=== PATIENT | male | born 1940 | race Caucasian/White ===

== ENCOUNTER 2018-10-11 12:41 | Emergency (ER) | payer OTHER ==
[~2018-10-11] VITALS: Ht 165.1 cm; Wt 69.3 kg
[2018-10-11 12:50] VITALS: BP 149/84
[2018-10-11 13:26] LABS: BASOPHILS # (AUTO) 0.05 x10^3/uL (0-0.1); BASOPHILS % (AUTO) 1 % (0-1); EOSINOPHILS # (AUTO) 0.06 x10^3/uL (0-0.4); EOSINOPHILS % (AUTO) 1 % (1-7); LYMPHOCYTES % (AUTO) 12 % (22-44); MD NO; MEAN CORPUSCULAR HEMOGLOBIN 31.9 pg (27.5-34.5); MEAN CORPUSCULAR HGB CONC 33.2 g/dL (33.2-36.2); MEAN CORPUSCULAR VOLUME 96.3 fL (81-97); MONOCYTES # (AUTO) 0.66 x10^3/uL (0.2-0.8); MONOCYTES % (AUTO) 7 % (2-9); NEUTROPHILS # (AUTO) 7.88 x10^3/uL (1.8-6.8); NEUTROPHILS % (AUTO) 80 % (42-75); PLATELET COUNT 276 x10^3/uL (130-400); RED BLOOD COUNT 4.51 x10^6/uL (4.38-5.82); RED CELL DISTRIBUTION WIDTH 15.5 % (9.4-14.8)
[2018-10-11 13:39] LABS: ALANINE AMINOTRANSFERASE 27 U/L (12-78); ALBUMIN 4.2 g/dL (3.4-5.0); ANION GAP 8 mmol/L (5-15); CALCIUM 9.3 mg/dL (8.5-10.1); CHLORIDE 104 mmol/L (98-107); CREATININE 2.47 mg/dL (0.7-1.3)
[2018-10-11 13:41] LABS: ALKALINE PHOSPHATASE 95 U/L (45-117); BILIRUBIN,TOTAL 0.8 mg/dL (0.2-1.0); TOTAL PROTEIN 8.5 g/dL (6.4-8.2)
[2018-10-11 14:05] LABS: CULTURE INDICATED? YES
[2018-10-11] MEDS ORDERED: B12/1TAB PO (14:07)
[2018-10-11] MEDS ORDERED: ALLO300T PO (14:07)
[2018-10-11] MEDS ORDERED: LISI-170 PO (14:07)
[2018-10-11] MEDS ORDERED: ATOR20TA37 PO (14:07)
[2018-10-11 14:24] LABS: MICROSCOPIC INDICATED
== END 2018-10-11 15:27 | disposition home or self-care (01) ==
LOC: ED 13:43
DX: R10.31 Right lower quadrant pain (principal); R10.32 Left lower quadrant pain; I10 Essential (primary) hypertension
CPT/HCPCS: 36415; 74176; 80053; 81001; 83690; 85025; 87086; 99284

== ENCOUNTER 2018-11-16 09:16 | Outpatient (CLI) | payer OTHER, MEDICARE ==
[~2018-11-16 09:16] MED LIST: ALLO300T PO; ATOR20TA37 PO; B12/1TAB PO; LISI-170 PO
[2018-11-16] MEDS ORDERED: FLAX10004 PO (09:52)
[2018-11-16] MEDS ORDERED: CYAN1TAB29 PO (09:52)
[2018-11-16 10:40] LABS: MICROSCOPIC NOT IND
== END 2018-11-16 23:59 | disposition home or self-care (01) ==
LOC: STAR 09:16
PROVIDERS: ATTEND Urology
DX: Z01.818 Encounter for other preprocedural examination (principal); C64.9 Malignant neoplasm of unspecified kidney, except renal pelvis
CPT/HCPCS: 81003; 87086; 93005

== ENCOUNTER 2018-11-22 07:58 | Inpatient (IN) | payer MEDICARE, OTHER ==
[~2018-11-22] VITALS: Ht 165.1 cm; Wt 68.9 kg
[~2018-11-22 07:58] MED LIST changes: +CYAN1TAB29 PO; +FLAX10004 PO; +LIDOCAINE-MPF 2% ,5ML ONE
[2018-11-22] MEDS ORDERED: LACTATED RINGERS 1,000 ML IV SCH (10:54)
[2018-11-22 10:57] VITALS: BP 113/67
[2018-11-22] MEDS ORDERED: BUPIVACAINE/PF 0.5% ONE (11:45)
[2018-11-22] MEDS ORDERED: DEXAMETHASONE 4 MG/ML, 1ML ONE (11:52)
[2018-11-22] MEDS ORDERED: PROPOFOL 10 MG/ML, 20ML ONE (11:52)
[2018-11-22] MEDS ORDERED: FENTANYL PF 250 MCG/5ML ONE ×2 (11:52→15:29)
[2018-11-22] MEDS ORDERED: MIDAZOLAM 1 MG/ML, 2ML ONE (11:52)
[2018-11-22] MEDS ORDERED: GLYCOPYRROLATE 0.2MG/1ML, 5ML ONE (11:52)
[2018-11-22] MEDS ORDERED: ROCURONIUM 10MG/ML,5ML ONE (11:52)
[2018-11-22] MEDS ORDERED: CEFAZOLIN 1,000 MG ONE (11:53)
[2018-11-22] MEDS ORDERED: FAMOTIDINE 20 MG TABLET PO ONE (12:30)
[2018-11-22] MEDS ORDERED: ALBUTEROL SULFATE 2.5 MG/3 ML NPPB PRN (12:30)
[2018-11-22] MEDS ORDERED: ACETAMINOPHEN 325 MG TABLET PO PRN (12:30)
[2018-11-22] MEDS ORDERED: MIDAZOLAM 1 MG/ML, 2ML IV PRN (12:30)
[2018-11-22] MEDS ORDERED: OxyconTIN ER 10 MG TAB.ER PO ONE (12:30)
[2018-11-22] MEDS ORDERED: DEXAMETHASONE 4 MG/ML, 1ML IV PRN (12:30)
[2018-11-22] MEDS ORDERED: EPHEDRINE 50 MG/ML, 1ML IVPush PRN (12:30)
[2018-11-22] MEDS ORDERED: HYDROmorphone 2 MG/ML, 1ML IVPush PRN (12:30)
[2018-11-22] MEDS ORDERED: MEPERIDINE/PF 25MG/0.5ML IVPush PRN (12:30)
[2018-11-22] MEDS ORDERED: HYDROcodone/APAP 7.5-325MG/15ML UDC PO PRN (12:30)
[2018-11-22] MEDS ORDERED: SCOPOLAMINE PATCH, 1.5MG PATCH.TD72 TD ONE (12:30)
[2018-11-22] MEDS ORDERED: FENTANYL PF 100 MCG/2ML IV PRN (12:30)
[2018-11-22] MEDS ORDERED: OXYcodone 5 MG/5 ML ORAL.SOL UDC PO PRN (12:30)
[2018-11-22] MEDS ORDERED: ONDANSETRON ODT 8 MG PO PRN (12:30)
[2018-11-22] MEDS ORDERED: LABETALOL 5MG/ML, 20ML IV PRN (12:30)
[2018-11-22] MEDS ORDERED: hydrALAzine 20 MG/ML, 1ML IV PRN (12:30)
[2018-11-22] MEDS ORDERED: MORPHINE SULFATE 4 MG/ML, 1ML IVPush PRN (12:30)
[2018-11-22] MEDS ORDERED: GABAPENTIN 300 MG CAPSULE PO ONE (12:30)
[2018-11-22] MEDS ORDERED: EPHEDRINE 50 MG/ML, 1ML ONE (15:29)
[2018-11-22] MEDS ORDERED: PHENYLEPHRINE 10 MG/ML ONE (15:29)
[2018-11-22] MEDS ORDERED: THROMBIN 20,000 UNIT VIAL TP ONE (16:01)
[2018-11-22] MEDS ORDERED: hydrALAzine 20 MG/ML, 1ML ONE (17:43)
[2018-11-22] MEDS ORDERED: OPIUM/BELLADONNA SUPP.RECT 16.2-30 MG PR PRN (18:30)
[2018-11-22] MEDS: morphine SULFATE 10 MG/ML, 1ML IV PRN (19:57)
[2018-11-22 20:11] VITALS: BP 105/73
[2018-11-22] MEDS: D5%-LACTATED RINGERS 1,000 ML IV SCH (20:18)
[2018-11-22] MEDS: ATORVASTATIN 20 MG TABLET PO SCH (21:00)
[2018-11-22 21:53] VITALS: BP 117/70
[2018-11-22 23:10] VITALS: BP 98/65
[2018-11-23] VITALS (10 sets, daily range): BP systolic 78–127; BP diastolic 52–72
[2018-11-23] MEDS: morphine SULFATE 10 MG/ML, 1ML IV PRN ×3 (04:04→18:05)
[2018-11-23 05:23] LABS: CHLORIDE 107 mmol/L (98-107)
[2018-11-23 05:28] LABS: ANION GAP 7 mmol/L (5-15); CALCIUM 8.4 mg/dL (8.5-10.1); CREATININE 2.56 mg/dL (0.7-1.3)
[2018-11-23] MEDS: D5%-LACTATED RINGERS 1,000 ML IV SCH (06:02)
[2018-11-23] MEDS: ALLOPURINOL 300 MG TABLET PO SCH (08:59)
[2018-11-23] MEDS ORDERED: LISINOPRIL 20 MG TABLET PO SCH (09:00)
[2018-11-23] MEDS: ONDANSETRON 2MG/ML, 2ML IV PRN (09:19)
[2018-11-23] MEDS ORDERED: SODIUM POLYSTYRENE SULFONATE ORAL SUSP PO ONE (15:07)
[2018-11-23] MEDS ORDERED: INSULIN REGULAR 100 UNITS/ML, 3ML VIAL IVPush STA (15:07)
[2018-11-23] MEDS ORDERED: DEXTROSE 50%, 50ML VIAL IVPush ONE (15:30)
[2018-11-23 15:36] LABS: BASOPHILS % (AUTO) 0 % (0-1); EOSINOPHILS % (AUTO) 0 % (1-7); LYMPHOCYTES # (AUTO) 0.69 x10^3/uL (1-3.4); LYMPHOCYTES % (AUTO) 6 % (22-44); MD NO; MEAN CORPUSCULAR HEMOGLOBIN 31.2 pg (27.5-34.5); MEAN CORPUSCULAR HGB CONC 32.5 g/dL (33.2-36.2); MEAN CORPUSCULAR VOLUME 96.2 fL (81-97); MEAN PLATELET VOLUME 7.3 fL (7.4-10.4); MONOCYTES # (AUTO) 0.57 x10^3/uL (0.2-0.8); MONOCYTES % (AUTO) 5 % (2-9); NEUTROPHILS # (AUTO) 10.02 x10^3/uL (1.8-6.8); NEUTROPHILS % (AUTO) 89 % (42-75); PLATELET COUNT 236 x10^3/uL (130-400); RED BLOOD COUNT 3.05 x10^6/uL (4.38-5.82); RED CELL DISTRIBUTION WIDTH 16.1 % (9.4-14.8)
[2018-11-23 15:53] LABS: TROPONIN I 0.247 ng/mL (0.000-0.045)
[2018-11-23] MEDS ORDERED: FUROSEMIDE 20 MG/2 ML IV ONE (17:00)
[2018-11-23] MEDS: SODIUM BICARB 8.4%,50ML SYR. 75 MEQ in SODIUM CHLORIDE 0.45% 1,000 ML IV SCH ×2 (17:54→23:43)
[2018-11-23 18:23] LABS: TROPONIN I 0.207 ng/mL (0.000-0.045)
[2018-11-23] MEDS ORDERED: D5%-LACTATED RINGERS 1,000 ML IV SCH (18:30)
[2018-11-23 18:49] LABS: FREE T4 (FREE THYROXINE) 1.27 ng/dL (0.76-1.46)
[2018-11-23] MEDS: LIDODERM 5% PATCH TD SCH (20:41)
[2018-11-23] MEDS: ATORVASTATIN 20 MG TABLET PO SCH (20:41)
[2018-11-23 22:25] LABS: ANION GAP 5 mmol/L (5-15); CALCIUM 8.5 mg/dL (8.5-10.1); CHLORIDE 104 mmol/L (98-107); CREATININE 2.77 mg/dL (0.7-1.3)
[2018-11-23 22:29] LABS: TROPONIN I 0.188 ng/mL (0.000-0.045)
[2018-11-24 00:31] VITALS: BP 117/67
[2018-11-24 04:15] VITALS: BP 105/66
[2018-11-24] MEDS: SODIUM BICARB 8.4%,50ML SYR. 75 MEQ in SODIUM CHLORIDE 0.45% 1,000 ML IV SCH (04:53)
[2018-11-24 06:07] LABS: ANION GAP 4 mmol/L (5-15); CHLORIDE 103 mmol/L (98-107)
[2018-11-24 06:16] LABS: ALANINE AMINOTRANSFERASE 12 U/L (12-78); ALBUMIN 2.5 g/dL (3.4-5.0); ALKALINE PHOSPHATASE 81 U/L (45-117); BILIRUBIN,TOTAL 0.7 mg/dL (0.2-1.0); CALCIUM 8.3 mg/dL (8.5-10.1); CHOL/HDL RATIO 2.6; CHOLESTEROL, TOTAL 100 mg/dL (140-239); CREATININE 2.54 mg/dL (0.7-1.3); HDL CHOL % 39 % (26-37); HDL CHOLESTEROL (DIRECT) 39 mg/dL (40-60); LDL CHOLESTEROL,CALCULATED 44 mg/dL (54-169); LDL/HDL RATIO 1.1 (0.5-3.0); TOTAL PROTEIN 5.7 g/dL (6.4-8.2); TRIGLYCERIDES 87 mg/dL (50-200); VLDL CHOLESTEROL 17 mg/dL (0-25)
[2018-11-24 06:30] LABS: BASOPHILS # (AUTO) 0.01 x10^3/uL (0-0.1); BASOPHILS % (AUTO) 0 % (0-1); EOSINOPHILS # (AUTO) 0.02 x10^3/uL (0-0.4); EOSINOPHILS % (AUTO) 0 % (1-7); LYMPHOCYTES # (AUTO) 1.08 x10^3/uL (1-3.4); LYMPHOCYTES % (AUTO) 10 % (22-44); MD NO; MEAN CORPUSCULAR HEMOGLOBIN 32.2 pg (27.5-34.5); MEAN CORPUSCULAR HGB CONC 33.7 g/dL (33.2-36.2); MEAN CORPUSCULAR VOLUME 95.4 fL (81-97); MEAN PLATELET VOLUME 8.3 fL (7.4-10.4); MONOCYTES # (AUTO) 0.64 x10^3/uL (0.2-0.8); MONOCYTES % (AUTO) 6 % (2-9); NEUTROPHILS # (AUTO) 8.92 x10^3/uL (1.8-6.8); NEUTROPHILS % (AUTO) 84 % (42-75); PLATELET COUNT 184 x10^3/uL (130-400); RED BLOOD COUNT 3.09 x10^6/uL (4.38-5.82); RED CELL DISTRIBUTION WIDTH 16.4 % (9.4-14.8)
[2018-11-24 07:21] VITALS: BP 115/67
[2018-11-24] MEDS: ALLOPURINOL 300 MG TABLET PO SCH (07:44)
[2018-11-24] MEDS ORDERED: FUROSEMIDE 40 MG/4 ML IV ONE (08:00)
[2018-11-24] MEDS: LACTATED RINGERS 1,000 ML IV SCH ×3 (08:04→23:05)
[2018-11-24] MEDS: ONDANSETRON 2MG/ML, 2ML IV PRN (09:45)
[2018-11-24] MEDS: HYDROcodone/APAP 5/325 TABLET PO PRN (10:24)
[2018-11-24] MEDS: FAMOTIDINE 20 MG TABLET PO SCH (10:24)
[2018-11-24] MEDS ORDERED: MAALOX/HYOSCYAMINE/LIDOCAINE 45 ML BTL PO PRN (10:30)
[2018-11-24] MEDS ORDERED: PHENOL THROAT SPRAY BOTTLE MM PRN (10:30)
[2018-11-24 12:53] VITALS: BP 96/56
[2018-11-24 19:35] VITALS: BP 96/60
[2018-11-24] MEDS: LIDODERM 5% PATCH TD SCH (20:41)
[2018-11-24] MEDS: ATORVASTATIN 20 MG TABLET PO SCH (20:42)
[2018-11-25 01:50] VITALS: BP 100/60
[2018-11-25] MEDS: HYDROcodone/APAP 5/325 TABLET PO PRN ×3 (02:02→20:43)
[2018-11-25 04:38] LABS: ANION GAP 3 mmol/L (5-15); CALCIUM 8.7 mg/dL (8.5-10.1); CHLORIDE 102 mmol/L (98-107); CREATININE 2.58 mg/dL (0.7-1.3)
[2018-11-25 04:43] LABS: % IRON SATURATION 14 % (20-55); IRON LEVEL 26 mcg/dL (65-175); TOTAL IRON BINDING CAPACITY 187 mcg/dL (250-450)
[2018-11-25 04:49] LABS: TROPONIN I 0.071 ng/mL (0.000-0.045)
[2018-11-25] MEDS: LACTATED RINGERS 1,000 ML IV SCH (05:55)
[2018-11-25 07:50] VITALS: BP 118/72
[2018-11-25] MEDS ORDERED: REGADENOSON 0.4 MG/5 ML SYRINGE ONE (08:45)
[2018-11-25] MEDS ORDERED: ALBUMIN HUMAN 25% 100 ML IV ONE (09:30)
[2018-11-25] MEDS ORDERED: SODIUM CHLORIDE 0.45% 1,000 ML IV SCH (09:30)
[2018-11-25] MEDS: FAMOTIDINE 20 MG TABLET PO SCH (09:38)
[2018-11-25] MEDS: ALLOPURINOL 300 MG TABLET PO SCH (09:38)
[2018-11-25] MEDS: SODIUM CHLORIDE 0.9% 1,000 ML IV SCH (11:09)
[2018-11-25] MEDS ORDERED: METOPROLOL TARTRATE 25 MG TABLET PO SCH (11:30)
[2018-11-25] MEDS: METOPROLOL TARTRATE 25 MG TABLET PO SCH ×2 (11:36→18:15)
[2018-11-25 13:31] VITALS: BP 116/67
[2018-11-25] MEDS: ASPIRIN 81 MG TABLET EC PO SCH (15:15)
[2018-11-25 18:42] VITALS: BP 102/61
[2018-11-25] MEDS: LIDODERM 5% PATCH TD SCH (20:39)
[2018-11-25] MEDS: ATORVASTATIN 40 MG TABLET PO SCH (20:43)
[2018-11-26] MEDS: SODIUM CHLORIDE 0.9% 1,000 ML IV SCH ×3 (00:08→21:33)
[2018-11-26 00:20] VITALS: BP 127/70
[2018-11-26 05:48] VITALS: BP 120/74
[2018-11-26] MEDS: METOPROLOL TARTRATE 25 MG TABLET PO SCH ×2 (05:49→18:46)
[2018-11-26] MEDS: ASPIRIN 81 MG TABLET EC PO SCH (05:49)
[2018-11-26] MEDS: HYDROcodone/APAP 5/325 TABLET PO PRN ×2 (05:53→12:31)
[2018-11-26 06:54] VITALS: BP 102/62
[2018-11-26] MEDS: FAMOTIDINE 20 MG TABLET PO SCH (08:37)
[2018-11-26] MEDS: ALLOPURINOL 300 MG TABLET PO SCH (08:37)
[2018-11-26] MEDS ORDERED: POLYETHYLENE GLYCOL 17 GM PACKET PO PRN (11:00)
[2018-11-26 11:20] LABS: BASOPHILS # (AUTO) 0.01 x10^3/uL (0-0.1); BASOPHILS % (AUTO) 0 % (0-1); EOSINOPHILS # (AUTO) 0.24 x10^3/uL (0-0.4); EOSINOPHILS % (AUTO) 3 % (1-7); LYMPHOCYTES # (AUTO) 0.75 x10^3/uL (1-3.4); LYMPHOCYTES % (AUTO) 9 % (22-44); MD NO; MEAN CORPUSCULAR HEMOGLOBIN 33.1 pg (27.5-34.5); MEAN CORPUSCULAR HGB CONC 34.2 g/dL (33.2-36.2); MEAN CORPUSCULAR VOLUME 96.7 fL (81-97); MEAN PLATELET VOLUME 7.4 fL (7.4-10.4); MONOCYTES # (AUTO) 0.36 x10^3/uL (0.2-0.8); MONOCYTES % (AUTO) 4 % (2-9); NEUTROPHILS # (AUTO) 6.86 x10^3/uL (1.8-6.8); NEUTROPHILS % (AUTO) 83 % (42-75); PLATELET COUNT 213 x10^3/uL (130-400); RED BLOOD COUNT 3.01 x10^6/uL (4.38-5.82); RED CELL DISTRIBUTION WIDTH 15.8 % (9.4-14.8)
[2018-11-26 11:27] LABS: ALBUMIN 2.9 g/dL (3.4-5.0); ANION GAP 3 mmol/L (5-15); CALCIUM 8.7 mg/dL (8.5-10.1); CHLORIDE 105 mmol/L (98-107); CREATININE 2.16 mg/dL (0.7-1.3)
[2018-11-26] MEDS: DOCUSATE 100 MG CAPSULE PO SCH ×2 (12:20→20:26)
[2018-11-26 13:27] VITALS: BP 120/74
[2018-11-26] MEDS: ACETAMINOPHEN 325 MG TABLET PO PRN (18:46)
[2018-11-26 18:50] VITALS: BP 123/62
[2018-11-26] MEDS: ATORVASTATIN 40 MG TABLET PO SCH (20:26)
[2018-11-26] MEDS: LIDODERM 5% PATCH TD SCH (20:31)
[2018-11-27 02:53] VITALS: BP 118/62
[2018-11-27] MEDS: HYDROcodone/APAP 5/325 TABLET PO PRN ×2 (03:05→20:25)
[2018-11-27 05:35] LABS: CHLORIDE 105 mmol/L (98-107)
[2018-11-27 05:39] LABS: ALBUMIN 2.5 g/dL (3.4-5.0); ANION GAP 4 mmol/L (5-15); CALCIUM 8.3 mg/dL (8.5-10.1); CREATININE 1.84 mg/dL (0.7-1.3)
[2018-11-27 06:57] VITALS: BP 123/66
[2018-11-27] MEDS: ASPIRIN 81 MG TABLET EC PO SCH (07:17)
[2018-11-27] MEDS: METOPROLOL TARTRATE 25 MG TABLET PO SCH ×2 (07:18→18:12)
[2018-11-27] MEDS: SODIUM CHLORIDE 0.9% 1,000 ML IV SCH (07:18)
[2018-11-27] MEDS ORDERED: BISACODYL 10 MG SUPP PR PRN (07:30)
[2018-11-27] MEDS: FAMOTIDINE 20 MG TABLET PO SCH (10:42)
[2018-11-27] MEDS: DOCUSATE 100 MG CAPSULE PO SCH ×2 (10:42→20:03)
[2018-11-27] MEDS: ALLOPURINOL 300 MG TABLET PO SCH (10:42)
[2018-11-27] MEDS ORDERED: LACTULOSE 10 GM/15 ML UDC PO PRN (11:00)
[2018-11-27 12:23] VITALS: BP 119/65
[2018-11-27 19:47] VITALS: BP 137/71
[2018-11-27] MEDS: ATORVASTATIN 40 MG TABLET PO SCH (20:24)
[2018-11-27] MEDS: LIDODERM 5% PATCH TD SCH (20:26)
[2018-11-28 00:25] VITALS: BP 145/74
[2018-11-28] MEDS: ASPIRIN 81 MG TABLET EC PO SCH (06:14)
[2018-11-28] MEDS: METOPROLOL TARTRATE 25 MG TABLET PO SCH ×2 (06:14→17:26)
[2018-11-28 06:15] VITALS: BP 126/68
[2018-11-28] MEDS: ACETAMINOPHEN 325 MG TABLET PO PRN ×2 (06:17→17:27)
[2018-11-28 06:49] VITALS: BP 127/72
[2018-11-28] MEDS: FAMOTIDINE 20 MG TABLET PO SCH (08:29)
[2018-11-28] MEDS: DOCUSATE 100 MG CAPSULE PO SCH ×2 (08:29→20:39)
[2018-11-28] MEDS: ALLOPURINOL 300 MG TABLET PO SCH (08:29)
[2018-11-28 13:00] VITALS: BP 123/71
[2018-11-28 18:50] VITALS: BP 121/70
[2018-11-28] MEDS: LIDODERM 5% PATCH TD SCH (20:39)
[2018-11-28] MEDS: ATORVASTATIN 40 MG TABLET PO SCH (20:39)
[2018-11-29 02:29] VITALS: BP 130/72
[2018-11-29] MEDS: METOPROLOL TARTRATE 25 MG TABLET PO SCH (05:40)
[2018-11-29] MEDS: ASPIRIN 81 MG TABLET EC PO SCH (05:40)
[2018-11-29 06:19] LABS: BASOPHILS # (AUTO) 0.03 x10^3/uL (0-0.1); BASOPHILS % (AUTO) 1 % (0-1); EOSINOPHILS # (AUTO) 0.28 x10^3/uL (0-0.4); EOSINOPHILS % (AUTO) 4 % (1-7); LYMPHOCYTES % (AUTO) 17 % (22-44); MD NO; MEAN CORPUSCULAR HEMOGLOBIN 32.7 pg (27.5-34.5); MEAN CORPUSCULAR VOLUME 96.2 fL (81-97); MEAN PLATELET VOLUME 7.5 fL (7.4-10.4); MONOCYTES # (AUTO) 0.43 x10^3/uL (0.2-0.8); MONOCYTES % (AUTO) 7 % (2-9); NEUTROPHILS # (AUTO) 4.77 x10^3/uL (1.8-6.8); NEUTROPHILS % (AUTO) 72 % (42-75); PLATELET COUNT 235 x10^3/uL (130-400); RED BLOOD COUNT 2.88 x10^6/uL (4.38-5.82)
[2018-11-29 06:27] LABS: ALANINE AMINOTRANSFERASE 20 U/L (12-78); ALBUMIN 2.6 g/dL (3.4-5.0); ANION GAP 7 mmol/L (5-15); CHLORIDE 109 mmol/L (98-107); CREATININE 2.03 mg/dL (0.7-1.3)
[2018-11-29 06:29] LABS: ALKALINE PHOSPHATASE 110 U/L (45-117); BILIRUBIN,TOTAL 0.5 mg/dL (0.2-1.0); TOTAL PROTEIN 6.1 g/dL (6.4-8.2)
[2018-11-29 07:29] VITALS: BP 143/71
[2018-11-29] MEDS: DOCUSATE 100 MG CAPSULE PO SCH (08:44)
[2018-11-29] MEDS: ALLOPURINOL 300 MG TABLET PO SCH (08:44)
[2018-11-29] MEDS: FAMOTIDINE 20 MG TABLET PO SCH (08:44)
[2018-11-29 08:56] VITALS: BP 124/68
[2018-11-29] MEDS ORDERED: METO25TA35 PO (13:23)
[2018-11-29] MEDS ORDERED: LIDO700A20 TD (13:23)
[2018-11-29 14:00] VITALS: BP 119/70
== END 2018-11-29 17:39 | DRG 656 ==
LOC: ORIP 10:25 → 4NOR 18:16 → 4WST 11-23 17:55
PROVIDERS: ADMIT Urology; ATTEND Urology
PROC: 0TT10ZZ Resection of Left Kidney, Open Approach (ICD-10-PCS; principal; 2018-11-22 12:30)
PROC: 0TT70ZZ Resection of Left Ureter, Open Approach (ICD-10-PCS; 2018-11-22 12:30)
PROC: 30233N1 Transfusion of Nonautologous Red Blood Cells into Peripheral Vein, Percutaneous Approach (ICD-10-PCS; 2018-11-23)
DX: C65.2 Malignant neoplasm of left renal pelvis (principal); N17.0 Acute kidney failure with tubular necrosis; G93.41 Metabolic encephalopathy; E87.1 Hypo-osmolality and hyponatremia; E87.2 Acidosis; J98.11 Atelectasis; N18.4 Chronic kidney disease, stage 4 (severe); R44.3 Hallucinations, unspecified; I24.8 Other forms of acute ischemic heart disease; D50.9 Iron deficiency anemia, unspecified; E78.5 Hyperlipidemia, unspecified; E87.5 Hyperkalemia; G89.18 Other acute postprocedural pain; I95.81 Postprocedural hypotension; K59.00 Constipation, unspecified; K66.8 Other specified disorders of peritoneum; I12.9 Hypertensive chronic kidney disease with stage 1 through stage 4 chronic kidney disease, or unspecified chronic kidney disease; R00.0 Tachycardia, unspecified; M10.9 Gout, unspecified; M19.90 Unspecified osteoarthritis, unspecified site; Z82.49 Family history of ischemic heart disease and other diseases of the circulatory system; Z85.51 Personal history of malignant neoplasm of bladder; Z87.442 Personal history of urinary calculi
CPT/HCPCS: 36415; 70450; 71045; 74176; 78452; 80048; 80053; 80061; 80069; 82728; 82962; 83036; 83540; 83550; 83605; 84100; 84439; 84443; 84484; 85014; 85018; 85025; 86850; 86900; 86923; 88307; 93005; 93017; 93308; 93321; 93325; C1729; G0378; J0690; J1100; J1815; J1940; J2250; J2405; J2704; J2785; J3010; P9047; A9502; C1769; C9898; J0360; J2270; J2370; J7030; J7120; J7121; P9016